=== PATIENT | female | born 1955 | race Hispanic/Latino ===

== ENCOUNTER 2016-09-20 08:12 | Day surgery (SDC) | payer BC ==
[~2016-09-20 08:12] MED LIST: ANCEF/STERILE WATER 2 GM/20 ML IV NR
[2016-09-20] MEDS ORDERED: ZOFRAN IV PRN (08:44)
--- NOTE | 2016-09-20 08:51 | Anesthesia Day of Surgery ---
Anesthesia Day of Surgery - Day of Surgery Patient Examined: Yes Patient H&P Reviewed: Yes Patient is NPO: Yes Beta Blockers: Yes
--- NOTE | 2016-09-20 08:53 | Anesthesia Consultation ---
Anesthesia Consult and Med Hx Date of service: 09/20/16 - Airway Anesthetic Teeth Evaluation: Poor, Chipped, Crowns ROM Head & Neck: Adequate Mental/Hyoid Distance: Adequate Mallampati Class: Class II Intubation Access Assessment: Probably Good - Pulmonary Exam CTA: Yes - Cardiac Exam Cardiac Exam: RRR - Pre-Operative Health Status ASA Pre-Surgery Classification: ASA3 Proposed Anesthetic Plan: General - Pulmonary Hx Smoking: Yes (1 PPD X 45 YRS) COPD: Yes (USES INHALERS RARE) Hx Sleep Apnea: No (PADMINI PRE SCREEN HIGH RISK) - Cardiovascular System Hx Hypertension: Yes (2002) Hx Heart Attack/AMI: Yes (2002) Hx Percutaneous Transluminal Coronary Angioplasty (PTCA): Yes (STENT X 2002) - Central Nervous System Hx Neuromuscular Disorder: Yes (LUPUS) Hx Seizures: No CVA: No - Gastrointestinal Hx Gastroesophageal Reflux Disease: Yes - Endocrine Hx Renal Disease: No (STONES) Hx Liver Disease: No (FATTY LIVER) Hx Non-Insulin Dependent Diabetes: Yes (DIET CONTROLLED) Hx Thyroid Disease: No Hx Hyperthyroidism: No - Other Systems Hx Cancer: No Hx Obesity: Yes
[2016-09-20] MEDS ORDERED: NACL 0.9% 1000 ML 1,000 ML IV SCH (09:00)
[2016-09-20] MEDS ORDERED: VERSED IV NR (09:00)
[2016-09-20] MEDS ORDERED: PEPCID PO NR (09:00)
[2016-09-20] MEDS ORDERED: DIPRIVAN 10 MG/ML IV ONE (10:22)
[2016-09-20] MEDS ORDERED: SUBLIMAZE ONE (10:23)
[2016-09-20] MEDS ORDERED: WATER FOR IRRIG STERILE IR ONE (11:18)
[2016-09-20] MEDS ORDERED: OMNIPAQUE (300 MG) IV ONE (11:18)
[2016-09-20] MEDS ORDERED: XYLOCAINE MPF 2% ONE (11:21)
[2016-09-20] MEDS ORDERED: ZOFRAN ONE (11:49)
--- NOTE | 2016-09-20 11:58 | Short Stay Summary ---
Short Stay Documentation Date of service: 09/20/16 - History H&P: obtained from office - Allergies and Medications Current Medications: Allergies SILK TAPE Adverse Reaction (Uncoded 09/16/16 16:55) Rash Home Medications Medication Instructions Recorded Confirmed Last Taken Type ALBUTEROL Inhaler [Proair] 2 puff IH QID PRN 09/16/16 09/20/16 06/21/16 09:00 History ALPRAZolam [Xanax TAB] 1 mg PO QHS 09/16/16 09/20/16 09/19/16 09:00 History Aspirin [Aspirin TAB] 325 mg PO QDAY 09/16/16 09/20/16 09/15/16 09:00 History AtorvaSTATin [Lipitor] 10 mg PO QHS 09/16/16 09/20/16 09/19/16 21:00 History HYDROcodone/APAP 5-325 [[place] 1 each PO Q6HR PRN 09/16/16 09/20/16 09/20/16 05: 00 History 5/325] ISOSORBIDE MONOnitrate [Imdur ER] 60 mg PO QDAY 09/16/16 09/20/16 09/20/16 05: 00 History Metoprolol [Lopressor TAB] 100 mg PO DAILY 09/16/16 09/20/16 09/20/16 05:00 History Omeprazole 40 mg PO DAILY 09/16/16 09/20/16 09/20/16 05:00 History Ondansetron [Zofran TAB] 4 mg PO Q8HR PRN 09/16/16 09/20/16 09/20/16 05:00 History Ramipril 2.5 mg PO QDAY 09/16/16 09/20/16 09/20/16 05:00 History Tamsulosin [Flomax] 0.4 mg PO QDAY 09/16/16 09/20/16 09/20/16 05:00 History Active Medications Cefazolin Sodium (Ancef/Sterile Water 2 Gm/20 Ml) 2 gm IV PREOP NR Stop: 09/20/16 23:59 Hydromorphone HCl (Dilaudid) 0.5 mg IV Q10MIN PRN PRN Reason: Pain , Severe (7-10) Stop: 09/20/16 15:00 Sodium Chloride (Nacl 0.9% 1000 Ml) 1,000 mls @ 75 mls/hr IV DIRECT GENE Last Admin: 09/20/16 09:00 Dose: 75 mls/hr Midazolam HCl (Versed) 2 mg IV PREOP NR Stop: 09/20/16 23:59 Last Admin: 09/20/16 09:50 Dose: 2 mg - Brief post op/procedure progress note Date of procedure: 09/20/16 Pre-op diagnosis: bilat ureteral stones Post-op diagnosis: same Procedure: cysto, rpg, bilat ureterscopy, holmium laser(left), bilat basket stone, extraction , bilat stents with external strings Anesthesia: RYAN Surgeon: JOSELIN CORNELIUS Estimated blood loss: minimal Pathology: none Condition: stable - Hospital course Hospital course: percocet, cipro, post op info on chart - Disposition Condition at discharge: Stable Disposition: DC-[id number] TO HOME OR SELFCARE
[2016-09-20] MEDS: DILAUDID IV PRN ×3 (12:25→13:00)
--- NOTE | 2016-09-20 14:53 | Post Anesthesia Evaluation ---
- Post Anesthesia Evaluation Patient Participated: Yes Airway Patent: Yes Stable Respiratory Function: Yes Nausea/Vomiting: No Temp > 96.8F: Yes Pain Manageable: Yes Adequeate Hydration: Yes Anesthesia Complications: No Block Receding Appropriately: Not Applicable Patient on Ventilator: No
--- NOTE | 2016-09-20 14:58 | Operative Report ---
PREOPERATIVE DIAGNOSIS: Bilateral ureteral stones. POSTOPERATIVE DIAGNOSIS: Bilateral ureteral stones. PROCEDURE: Cystoscopy, bilateral retrograde pyelograms, bilateral ureteroscopy, left holmium lithotripsy with bilateral basket stone extraction, bilateral stent placement with external string (6-Icelandic 24 cm double-J stent with an external string). SURGEON: Koby Turk MD ANESTHESIA: General. ANESTHESIOLOGIST: Aranza Amaro MD ESTIMATED BLOOD LOSS: Minimal. FLUIDS: Crystalloid. COMPLICATIONS: No complications. INDICATIONS: This patient is a 61-year-old female new to our service. However, she has a long history of stones in the past. She had CT of abdomen and pelvis on September 07, which right mid ureteral stone, left renal stone. However, her pain has been primarily on the left, suggesting is now in the ureter. She presents now for surgical intervention. She has Flomax, [place], Cipro, Zofran. DESCRIPTION OF PROCEDURE: The patient was taken to the operative suite, placed in a supine position. After adequate general anesthesia, placed in a dorsal lithotomy position, prepped and draped in a sterile fashion. Pancystourethroscopy was performed with 22-Icelandic [place] cystoscope. No bladder pathology. Both ureteral orifices in normal position. Bilateral retrograde pyelograms were obtained with an 8-Icelandic [place] catheter and 8 mL of contrast, obvious filling defect [id number] ureter bilaterally. Her symptoms were on the left. A 0.035 guidewire x2 was placed in the left collecting system. Ureteroscopy was performed. The stone could be visualized. Tana to its size, 200 micron holmium fiber was used. Lithotripsy was performed. The stone was broken up into multiple fragments. A 3-Icelandic Abigail basket was used to extract the fragments. A 6-Icelandic 24 cm double-J stent was placed in the left collecting system under fluoroscopic guidance. Ureteroscopy up to the renal pelvis revealed no other stones. Similar procedure was done on the right side. Stone again localized in the [id number] ureter, smaller stone using the Abigail basket. It was extracted without difficulty. A 6-Icelandic 24 cm double-J stent on the fluoroscopic guidance was placed with an external string. Her bladder was drained. She was extubated and taken to the recovery room. JOB# [id number] JENNIFER/RYAN
[2016-09-20 16:15] VITALS: BP 139/73
[2016-09-20] MEDS ORDERED: NORCO 5/325 PO ONE (16:39)
--- NOTE | 2016-09-21 08:05 | Fluoroscopy Report ---
FLUOROSCOPY RETROGRADE UROGRAPHY History: Bilateral renal stones. Findings: Fluoroscopy was provided by radiology during retrograde urography by urology. 12 fluoroscopic images were captured. The images demonstrate bilateral proximal ureteral stones with poor opacification of the renal pelvises. Operative notes mention bilateral ureteroscopy and basket extraction of stones. A holmium laser was used. Bilateral double-J ureteral stents were placed on the final images which are in good position and adequately drain the renal collecting systems. Please correlate with the procedural report by Dr. Turk.
== END 2016-09-20 17:13 | disposition home or self-care (01) ==
LOC: OR 08:12
PROVIDERS: ATTEND Urology
DX: N20.1 Calculus of ureter (principal); J44.9 Chronic obstructive pulmonary disease, unspecified; I10 Essential (primary) hypertension; K21.9 Gastro-esophageal reflux disease without esophagitis; E11.9 Type 2 diabetes mellitus without complications; I25.10 Atherosclerotic heart disease of native coronary artery without angina pectoris; I25.2 Old myocardial infarction; F17.210 Nicotine dependence, cigarettes, uncomplicated; E66.9 Obesity, unspecified; Z68.37 Body mass index [BMI] 37.0-37.9, adult; Z95.5 Presence of coronary angioplasty implant and graft; Z91.09 Other allergy status, other than to drugs and biological substances; Z79.899 Other long term (current) drug therapy; Z79.82 Long term (current) use of aspirin; Z90.710 Acquired absence of both cervix and uterus; Z98.890 Other specified postprocedural states
CPT/HCPCS: 52332; 52352; 52356; 74420; 82962; A4217; C1758; C1769; C2617; J0690; J1170; J2250; J2405; J2704; J3010; J7030; Q9967